=== PATIENT | female | born 1960 | race Caucasian/White ===

== ENCOUNTER 2019-04-30 09:17 | Outpatient (CLI) | payer OTHER ==
--- NOTE | 2019-04-30 10:25 | MMO ---
Right Breast MAMMO Unilat Diag [facility]DI RT+BRICE. CLINICAL HISTORY: Patient is 59 years old and is seen for diagnostic exam. VIEWS: The views performed were: . FILMS COMPARED: The present examination has been compared to prior imaging studies performed on 04/15/2019, and at [facility] on 06/13/2016, 04/03/2018 and 04/30/2019. This study has been interpreted with the assistance of computer-aided detection. MAMMOGRAM FINDINGS: The breast is heterogeneously dense, which could obscure a lesion on mammography. The asymmetries seen at screening mammography do not persist at additional imaging, compatible with superimposed tissue. Sonography of this region demonstrates no concerning findings. There are no suspicious masses, suspicious calcifications, or new areas of architectural distortion. IMPRESSION: THERE IS NO MAMMOGRAPHIC EVIDENCE OF MALIGNANCY. A ROUTINE FOLLOW-UP MAMMOGRAM IN 1 YEAR IS RECOMMENDED. THE RESULTS OF THIS EXAM WERE SENT TO THE PATIENT. ACR BI-RADS Category 2 - Benign finding MAMMOGRAPHY NOTE: 1. A negative mammogram report should not delay a biopsy if a dominant of clinically suspicious mass is present. 2. Approximately 10% to 15% of breast cancers are not detected by mammography. 3. Adenosis and dense breasts may obscure an underlying neoplasm. Reported by: PACO WHITEHEAD MD Electonically Signed: [id number]
--- NOTE | 2019-04-30 10:37 | MMO ---
Right US Breast Limited Rt. CLINICAL HISTORY: Patient is 59 years old and is seen for . VIEWS: The views performed were: . FILMS COMPARED: The present examination has been compared to prior imaging studies performed on 04/15/2019, and at [facility] on 06/13/2016, 04/03/2018 and 04/30/2019. This study has been interpreted with the assistance of computer-aided detection. RIGHT BREAST ULTRASOUND FINDINGS: There is a simple cyst measuring 4 millimeters seen in the right breast at 3 o'clock. On ultrasound, no suspicious findings are identified. IMPRESSION: THERE IS NO MAMMOGRAPHIC EVIDENCE OF MALIGNANCY. A ROUTINE FOLLOW-UP MAMMOGRAM IN 1 YEAR IS RECOMMENDED. THE RESULTS OF THIS EXAM WERE SENT TO THE PATIENT. ACR BI-RADS Category 2 - Benign finding MAMMOGRAPHY NOTE: 1. A negative mammogram report should not delay a biopsy if a dominant of clinically suspicious mass is present. 2. Approximately 10% to 15% of breast cancers are not detected by mammography. 3. Adenosis and dense breasts may obscure an underlying neoplasm. Reported by: PACO WHITEHEAD MD Electonically Signed: [id number]
== END 2019-04-30 09:18 | disposition home or self-care (01) ==
LOC: BICMAMMO 09:17
PROVIDERS: ATTEND Obstetrics & Gynecology
DX: N63.10 Unspecified lump in the right breast, unspecified quadrant (principal)
CPT/HCPCS: G0279

== ENCOUNTER 2020-11-08 20:11 | Inpatient (IN) | payer SELFPAY ==
[~2020-11-08 20:11] MED LIST: Iopamidol-370 76% 500 ML 1 ML ONE
[2020-11-08] MEDS ORDERED: Lorazepam 2 MG/ML VIAL ONE (21:04)
[2020-11-08] MEDS ORDERED: Aspirin Chewable 81 MG TAB ONE (21:07)
[2020-11-08 21:16] LABS: #Basophils 0.1 thou/uL (0.0-0.2); #Eosinphils 0.1 thou/uL (0.0-0.7); #Lymphocytes 2.4 thou/uL (1.20-3.40); #Monocytes 0.8 thou/uL (0.11-0.59); #Neutrophils 7.2 thou/uL (1.40-6.50); %Basophils 0.6 % (0.0-1.0); %Eosinophils 1.3 % (0.0-10.0); %Lymphocytes 22.8 % (21.0-51.0); %Monocytes 7.2 % (0.0-10.0); %Neutrophils 68.1 % (42.0-75.0); Hemoglobin 13.9 g/dL (12.0-16.0); Mean Corpuscular Hemoglobin 31.4 pg (27.0-31.0); Mean Corpuscular Volume 92.5 fL (78.0-98.0); Mean Platelet Volume 7.1 fL (7.4-10.4); Platelet Count 235 thou/uL (130-400); RBC Distribution Width 13.3 % (11.5-14.5); Red Blood Cell (RBC) Count 4.44 mill/uL (4.20-5.40); White Blood Cell (WBC) Count 10.5 thou/uL (4.8-10.8)
[2020-11-08 21:29] LABS: INR-International Normal Ratio 0.9; PTT 27.4 sec (22.9-36.1); Prothrombin Time 11.6 sec (12.0-14.7)
[2020-11-08 21:38] LABS: ALT (SGPT) 49 U/L (8-55); AST (SGOT) 25 U/L (5-34); Albumin 4.2 g/dL (3.5-5.0); Alkaline Phosphatase 69 U/L (40-110); Anion Gap 16 mmol/L (10-20); BUN (Urea Nitrogen) 14 mg/dL (9.8-20.1); Bilirubin, Total 0.7 mg/dL (0.2-1.2); CK (CPK) 27 U/L (29-168); Calc. Creatinine Clearance 0 mL/min (70-130); Calcium 9.9 mg/dL (7.8-10.44); Carbon Dioxide 24 mmol/L (22-29); Chloride 101 mmol/L (98-107); Glucose 90 mg/dL (70-105); Lipase 30 U/L (8-78); Potassium 3.5 mmol/L (3.5-5.1); Protein, Total 7.2 g/dL (6.0-8.3); Sodium 137 mmol/L (136-145)
[2020-11-09] MEDS ORDERED: Acetaminophen 650 MG Suppository PR PRN (03:00)
[2020-11-09] MEDS ORDERED: hydrALAZINE 20 MG/ML VIAL SLOW IVP PRN (03:02)
[2020-11-09 06:51] LABS: #Basophils 0.1 thou/uL (0.0-0.2); #Eosinphils 0.2 thou/uL (0.0-0.7); #Lymphocytes 2.1 thou/uL (1.20-3.40); #Monocytes 0.7 thou/uL (0.11-0.59); #Neutrophils 5.6 thou/uL (1.40-6.50); %Basophils 0.6 % (0.0-1.0); %Eosinophils 2.2 % (0.0-10.0); %Lymphocytes 24.2 % (21.0-51.0); %Monocytes 8.2 % (0.0-10.0); %Neutrophils 64.9 % (42.0-75.0); Hemoglobin 13.6 g/dL (12.0-16.0); Mean Corpuscular HGB CONC 33.9 g/dL (32.0-36.0); Mean Corpuscular Hemoglobin 31.7 pg (27.0-31.0); Mean Corpuscular Volume 93.4 fL (78.0-98.0); Mean Platelet Volume 6.9 fL (7.4-10.4); Platelet Count 221 thou/uL (130-400); RBC Distribution Width 13.3 % (11.5-14.5); Red Blood Cell (RBC) Count 4.31 mill/uL (4.20-5.40); White Blood Cell (WBC) Count 8.6 thou/uL (4.8-10.8)
[2020-11-09 07:11] LABS: Anion Gap 9 mmol/L (10-20); BUN (Urea Nitrogen) 14 mg/dL (9.8-20.1); Calc. Creatinine Clearance 81 mL/min (70-130); Calcium 9.4 mg/dL (7.8-10.44); Carbon Dioxide 28 mmol/L (22-29); Cardiac Risk 3.1 (Less than 4.5); Chloride 106 mmol/L (98-107); Cholesterol 219 mg/dl (< 200 Desired); Glucose 89 mg/dL (70-105); HDL Cholesterol 70 mg/dL (>60 Neg Risk); LDL Cholesterol, Calculated 106 mg/dL; Potassium 4.1 mmol/L (3.5-5.1); Sodium 139 mmol/L (136-145); Triglycerides 214 mg/dL (Less than 150)
[2020-11-09] MEDS ORDERED: Aspirin Chewable 81 MG TAB ONE (08:50)
[2020-11-09] MEDS ORDERED: Enoxaparin Sodium 40 MG/0.4 ML SYRINGE ONE (08:50)
[2020-11-09] MEDS: Aspirin 81 mg Enteric Coated Tablet PO SCH (10:28)
[2020-11-09] MEDS: Enoxaparin Sodium 40 MG/0.4 ML SYRINGE SC SCH (10:29)
[2020-11-09] MEDS ORDERED: Acetaminophen 325 MG TAB ONE (12:50)
[2020-11-09] MEDS: Acetaminophen 325 MG TAB PO PRN (13:22)
[2020-11-09] MEDS: guaiFENesin ER 600 MG TAB PO SCH (19:06)
[2020-11-09] MEDS ORDERED: Guaifenesin DM 100-10/5 ML UDCUP PO PRN (21:52)
[2020-11-09] MEDS: Atorvastatin Calcium 40 MG TAB PO SCH (22:26)
[2020-11-09] MEDS ORDERED: Ondansetron PF 4 MG/2 ML Vial IVP PRN (23:24)
[2020-11-09] MEDS ORDERED: Ibuprofen 800 MG TAB PO SCH (23:45)
[2020-11-10] MEDS: Lorazepam 1 MG TAB PO PRN (04:00)
[2020-11-10] MEDS: Levothyroxine Sodium 25 MCG TAB PO SCH (04:38)
[2020-11-10 07:36] LABS: #Eosinphils 0.2 thou/uL (0.0-0.7); #Lymphocytes 1.8 thou/uL (1.20-3.40); #Monocytes 0.8 thou/uL (0.11-0.59); #Neutrophils 7.2 thou/uL (1.40-6.50); %Basophils 0.4 % (0.0-1.0); %Eosinophils 1.6 % (0.0-10.0); %Lymphocytes 17.7 % (21.0-51.0); %Monocytes 8.2 % (0.0-10.0); %Neutrophils 72.2 % (42.0-75.0); Hemoglobin 13.7 g/dL (12.0-16.0); Mean Corpuscular HGB CONC 34.1 g/dL (32.0-36.0); Mean Corpuscular Hemoglobin 31.7 pg (27.0-31.0); Mean Platelet Volume 6.7 fL (7.4-10.4); Platelet Count 219 thou/uL (130-400); RBC Distribution Width 12.9 % (11.5-14.5); Red Blood Cell (RBC) Count 4.33 mill/uL (4.20-5.40)
[2020-11-10 07:56] LABS: ALT (SGPT) 44 U/L (8-55); AST (SGOT) 20 U/L (5-34); Alkaline Phosphatase 65 U/L (40-110); Anion Gap 10 mmol/L (10-20); BUN (Urea Nitrogen) 14 mg/dL (9.8-20.1); Bilirubin, Total 0.7 mg/dL (0.2-1.2); Calc. Creatinine Clearance 74 mL/min (70-130); Calcium 9.5 mg/dL (7.8-10.44); Carbon Dioxide 28 mmol/L (22-29); Chloride 101 mmol/L (98-107); Globulin 2.9 g/dL (2.4-3.5); Glucose 87 mg/dL (70-105); Protein, Total 6.9 g/dL (6.0-8.3); Sodium 135 mmol/L (136-145)
[2020-11-10] MEDS: Enoxaparin Sodium 40 MG/0.4 ML SYRINGE SC SCH (09:45)
[2020-11-10] MEDS: Aspirin 81 mg Enteric Coated Tablet PO SCH (09:45)
[2020-11-10] MEDS: guaiFENesin ER 600 MG TAB PO SCH ×2 (09:46→20:52)
[2020-11-10] MEDS: Estradiol 1 MG TAB PO SCH (09:46)
[2020-11-10] MEDS: Acetaminophen 325 MG TAB PO PRN ×2 (09:50→14:16)
[2020-11-10] MEDS ORDERED: Lorazepam 2 MG/ML VIAL SLOW IVP PRN (13:01)
[2020-11-10] MEDS ORDERED: Magnesium 2 GM/50 ML 2 GM in Premix Bag 1 BAG IVPB SCH (13:15)
[2020-11-10] MEDS: Metoclopramide HCl 10 MG/2 ML VIAL IVP SCH ×2 (14:17→20:51)
[2020-11-10] MEDS: Ketorolac Tromethamine 30 MG/ML VIAL IVP SCH ×2 (18:01→23:24)
[2020-11-10] MEDS: Atorvastatin Calcium 40 MG TAB PO SCH (20:52)
[2020-11-11] MEDS: Ketorolac Tromethamine 30 MG/ML VIAL IVP SCH ×3 (05:09→19:12)
[2020-11-11] MEDS: Levothyroxine Sodium 25 MCG TAB PO SCH (05:10)
[2020-11-11] MEDS: Metoclopramide HCl 10 MG/2 ML VIAL IVP SCH ×2 (05:10→19:12)
[2020-11-11] MEDS: Aspirin 81 mg Enteric Coated Tablet PO SCH (09:41)
[2020-11-11] MEDS: Enoxaparin Sodium 40 MG/0.4 ML SYRINGE SC SCH (09:41)
[2020-11-11] MEDS: guaiFENesin ER 600 MG TAB PO SCH (09:42)
[2020-11-11] MEDS: Estradiol 1 MG TAB PO SCH (09:42)
[2020-11-11] MEDS: Lorazepam 1 MG TAB PO PRN (14:28)
[2020-11-11 16:09] VITALS: BP 131/66; TEMP 98.2
== END 2020-11-11 18:10 | disposition home or self-care (01) | DRG 947 ==
LOC: ERS 20:11 → ERHOLD 22:06 → 2SE 11-09 21:17
PROVIDERS: ADMIT Student in an Organized Health Care Education/Training Program; ATTEND Internal Medicine
PROC: 8E0ZXY6 Isolation (ICD-10-PCS; principal; 2020-11-08)
DX: R53.1 Weakness (principal); U07.1 COVID-19; E03.9 Hypothyroidism, unspecified; J45.909 Unspecified asthma, uncomplicated; R51.9 Headache, unspecified; F41.9 Anxiety disorder, unspecified; T38.0X5A Adverse effect of glucocorticoids and synthetic analogues, initial encounter; Z88.2 Allergy status to sulfonamides; B94.8 Sequelae of other specified infectious and parasitic diseases; Z91.040 Latex allergy status; Z79.890 Hormone replacement therapy; Z90.89 Acquired absence of other organs; Z79.51 Long term (current) use of inhaled steroids; Z79.52 Long term (current) use of systemic steroids; Z79.899 Other long term (current) drug therapy
CPT/HCPCS: 36415; 70450; 70496; 70498; 70551; 71045; 80048; 80053; 80061; 82550; 83690; 83880; 84443; 84484; 85025; 85610; 85730; 93005; 93306; 96374; J1650; J1885; J2060; J2405; J2765; J2997; J3475; Q9967